=== PATIENT | female | born 1965 | race Caucasian/White ===

== ENCOUNTER 2017-08-31 05:40 | Outpatient (CLI) | payer BC ==
[~2017-08-31] VITALS: Ht 165.1 cm; Wt 108.9 kg
[2017-08-31] MEDS ORDERED: BUPR150T7 PO (10:58)
[2017-08-31] MEDS ORDERED: ESCI20TA PO (10:58)
[2017-08-31] MEDS ORDERED: DULA0.75 SQ (10:58)
[2017-08-31] MEDS ORDERED: OMEP20TA33 PO (10:58)
[2017-08-31] MEDS ORDERED: METF500T4 PO (10:58)
[2017-09-01] MEDS ORDERED: DOCU-143 PO (12:24)
[2017-09-01] MEDS ORDERED: OXYC-465 PO (12:24)
[2017-09-01] MEDS ORDERED: IBUP-1780 PO (12:24)
== END 2017-08-31 11:07 ==
LOC: PREOP 05:40
PROVIDERS: ATTEND Obstetrics & Gynecology
DX: Z01.818 Encounter for other preprocedural examination (principal); N95.0 Postmenopausal bleeding; N85.02 Endometrial intraepithelial neoplasia [EIN]

== ENCOUNTER 2017-09-01 10:49 | Day surgery (SDC) | payer BC ==
[~2017-09-01] VITALS: Ht 165.1 cm; Wt 108.9 kg
[2017-09-01] VITALS (9 sets, daily range): BP systolic 101–135; BP diastolic 54–86
[~2017-09-01 10:49] MED LIST: BUPR150T7 PO; DULA0.75 SQ; ESCI20TA PO; METF500T4 PO; OMEP20TA33 PO
--- OUTSIDE RECORDS SUMMARY | 2017-09-01 10:54 | XMS REPORT | Continuity of Care Document ---
Author Author [facility] Organization [facility] Address Unknown Phone Unavailable Allergies Active Description Code Type Severity Reaction Onset Reported/Identified Relationship to Patient Clinical Status Yes egg [id number] Drug Allergy Unknown HIVES 08/31/2017 Medications There is no data. Problems Date Dx Coded Attending Type Code Diagnosis Diagnosed By 08/28/2012 Ot 172.9 MALIG MELANOMA SKIN NOS 07/26/2014 Ot V76.12 07/26/2014 Ot V76.12 07/26/2014 Ot 172.9 07/26/2014 LIYA JARVIS, MARJORIE Boswell Ot V76.12 07/30/2014 LIYA JARVIS, MARJORIE Boswell Ot V76.12 07/31/2014 LIYA JARVIS, MARJORIE Boswell Ot V76.12 08/07/2014 Ot V76.12 08/07/2014 LIYA JARVIS, MARJORIE Boswell Ot V76.12 08/07/2014 LIYA JARVIS, MARJORIE Boswell Ot V76.12 08/07/2014 Ot V76.12 08/07/2014 Ot 172.9 08/07/2014 LIYA JARVIS, MARJORIE Boswell Ot V76.12 08/07/2014 LIYA JARVIS, MARJORIE Boswell Ot V76.12 01/01/2015 LIYA JARVIS, MARJORIE Boswell Ot 610.0 06/14/2015 Ot V76.12 06/14/2015 LIYA JARVIS, MARJORIE Boswell Ot V76.12 06/14/2015 LIYA JARVIS, MARJORIE Boswell Ot V76.12 06/14/2015 LIYA JARVIS, MARJORIE Boswell Ot 610.0 09/09/2015 Ot V76.12 09/09/2015 Ot 172.9 09/09/2015 LIYA JARVIS, MARJORIE Boswell Ot V76.12 09/09/2015 LIYA JARVIS, MARJORIE Boswell Ot V76.12 09/09/2015 MARJORIE NICKERSON MD Ot 610.0 09/11/2015 MARJORIE NICKERSON MD Ot Z12.31 09/23/2015 MARJORIE NICKERSON MD, Ot Z12.31 04/06/2016 Ot V76.12 OTH SCREEN MAMMO-MALIGN NEOPLASM OF GADIEL 04/06/2016 Ot 172.9 MALIG MELANOMA SKIN NOS 04/06/2016 MARJORIE NICKERSON MD Ot V76.12 OTH SCREEN MAMMO-MALIGN NEOPLASM OF GADIEL 04/06/2016 MARJORIE NICKERSON MD Ot V76.12 OTH SCREEN MAMMO-MALIGN NEOPLASM OF GADIEL 04/06/2016 MARJORIE NICKERSON MD Ot 610.0 SOLITARY CYST OF BREAST 04/06/2016 MARJORIE NICKERSON MD Ot Z12.31 ENCNTR SCREEN MAMMOGRAM FOR MALIGNANT NE 04/16/2016 MARJORIE NICKERSON MD Ot R92.8 OTH ABN AND INCONCLUSIVE FINDINGS ON DX 08/31/2017 Ot 172.9 MALIG MELANOMA SKIN NOS Procedures There is no data. Results There is no data. Encounters ACCT No. Visit Date/Time Discharge Status Pt. Type Provider Facility Loc./Unit Complaint [id number] 08/31/2017 05:40:00 08/31/2017 11:07:00 DIS Outpatient MARJORIE NICKERSON MD [facility] PREOP POST MENOPAUSAL BLEEDING [id number] 07/29/2017 14:09:00 07/29/2017 23:59:59 CLS Preadmit MARJORIE NICKERSON MD [facility] RAD ROUTINE SCREENING [id number] 04/06/2016 07:33:00 04/06/2016 23:59:59 CLS Outpatient MARJORIE NICKERSON MD [facility] RAD F/U MAMMO 6 MO [id number] 09/09/2015 07:32:00 09/09/2015 23:59:59 CLS Outpatient MARJORIE NICKERSON MD [facility] RAD SCREENING [id number] 08/07/2014 11:56:00 08/07/2014 23:59:59 CLS Outpatient MARJORIE NICKERSON MD [facility] RAD ABNORMAL MAMMO [id number] 07/27/2014 07:22:00 07/27/2014 23:59:59 CLS Outpatient MARJORIE NICKERSON MD [facility] RAD SCREENING [id number] 06/09/2013 10:47:00 06/09/2013 23:59:59 CLS Outpatient MARJORIE NICKERSON MD [facility] RAD SCREENING [id number] 09/01/2017 13:00:00 PEN Preadmit MARJORIE NICKERSON MD [facility] SDC POST MENOPAUSAL BLEEDING [id number] 08/29/2012 00:00:00 Document Registration [id number] 05/30/2012 13:48:00 Document Registration [id number] 05/02/2012 09:25:00 Document Registration [id number] 05/06/2011 07:44:00 Document Registration
[2017-09-01 11:25] LABS: BASOPHILS % (AUTO) 0 % (0-10); EOSINOPHILS # (AUTO) 0.2 10^3/uL (0.0-0.3); EOSINOPHILS % (AUTO) 2 % (0-10); HEMATOCRIT 41 % (35-52); HEMOGLOBIN 14.3 G/DL (11.5-16.0); LYMPHOCYTES # (AUTO) 2.4 X 10^3 (1.0-4.0); LYMPHOCYTES % (AUTO) 31 % (12-44); MEAN CORPUSCULAR HEMOGLOBIN 31 PG (25-34); MEAN CORPUSCULAR HGB CONC 35 G/DL (32-36); MEAN CORPUSCULAR VOLUME 89 FL (80-99); MEAN PLATELET VOLUME 10.6 FL (7.4-10.4); MONOCYTES # (AUTO) 0.5 X 10^3 (0.0-1.0); MONOCYTES % (AUTO) 7 % (0-12); NEUTROPHILS # (AUTO) 4.7 X 10^3 (1.8-7.8); NEUTROPHILS % (AUTO) 60 % (42-75); PLATELET COUNT 229 10^3/uL (130-400); RED BLOOD COUNT 4.59 10^6/uL (4.35-5.85); RED CELL DISTRIBUTION WIDTH 12.1 % (10.0-14.5); WHITE BLOOD COUNT 7.8 10^3/uL (4.3-11.0)
[2017-09-01] MEDS ORDERED: ceFAZolin 1,000 MG (ANCEF) VIAL ONE (11:32)
[2017-09-01] MEDS ORDERED: NS (IVPB) 100 ML ONE (11:32)
[2017-09-01] MEDS ORDERED: ESTROGENS CONJ IV 25 MG/5 ML (PREMARIN) VIAL IV ONE (11:45)
[2017-09-01] MEDS ORDERED: ceFAZolin 1 GM/NS 100 ML IVPB IV ONE ×2 (11:45)
[2017-09-01] MEDS: LACTATED RINGERS 1,000 ML IV PRN ×2 (11:54→13:00)
[2017-09-01] MEDS ORDERED: BUP/EPI 0.5% 1:200,000 (SENSORCAINE) 30 ML VIAL ONE (11:55)
[2017-09-01] MEDS ORDERED: ceFAZolin INJECTION 1,000 MG in NS (IVPB) 100 ML IV ONE (12:00)
[2017-09-01] MEDS ORDERED: ESTROGENS CONJ IV 25 MG/5 ML (PREMARIN) VIAL IM ONE (12:00)
[2017-09-01] MEDS ORDERED: fentaNYL INJECTION 100 MCG/2 ML AMP ONE ×3 (12:18→13:55)
[2017-09-01] MEDS ORDERED: ONDANSETRON 4 MG/2 ML (SDV) Z0FRAN ONE (12:18)
[2017-09-01] MEDS ORDERED: ROCURONIUM 10 MG/ML 5 ML SYRINGE IV ONE (12:18)
[2017-09-01] MEDS ORDERED: LIDOCAINE PF 2% 5 ML (XYLOCAINE) VIAL ONE (12:18)
[2017-09-01] MEDS ORDERED: SEVOFLURANE (ULTANE) 15 ML INHAL SOLN ONE (12:18)
[2017-09-01] MEDS ORDERED: proPOfol 200 MG/20 ML (DIPRIVAN) VIAL IV ONE (12:18)
[2017-09-01] MEDS ORDERED: MIDAZOLAM 2 MG/2 ML (VERSED) VIAL ONE (12:18)
--- NOTE | 2017-09-01 12:20 | Progress Note-Post Operative ---
Post-Operative Progess Note Surgeon (s)/Marketing Operations Assistant (s) Surgeon MARJORIE NICKERSON MD Marketing Operations Assistant: Martha Velazquez Pre-Operative Diagnosis Endometrial hyperplasia with atypia, DUB, PMB Post-Operative Diagnosis Same with pathology pending Procedure & Operative Findings Date of Procedure 09/01/17 Procedure Performed/Findings TL H with BSO Anesthesia Type GETA Estimated Blood Loss Estimated blood loss (mL): Minimal Specimens/Packing Specimens Removed Uterus tubes and ovaries Packing: None MARJORIE NICKERSON MD Sep 01, 2017 12:20
--- NOTE | 2017-09-01 12:20 | Progress Note-Pre Operative ---
Pre-Operative Progress Note H&P Reviewed The H&P was reviewed, patient examined and no changes noted. Date Seen by Provider: Sep 01, 2017 Time Seen by Provider: 12:19 Date H&P Reviewed: Sep 01, 2017 Time H&P Reviewed: 12:20 Pre-Operative Diagnosis: SUSAN/uterine mass/menorrhagia MARJORIE NICKERSON MD Sep 01, 2017 12:20 pm
[2017-09-01] MEDS ORDERED: IBUP-1780 PO (12:24)
[2017-09-01] MEDS ORDERED: DOCU-143 PO (12:24)
[2017-09-01] MEDS ORDERED: OXYC-465 PO (12:24)
--- NOTE | 2017-09-01 12:26 | Discharge Instructions ---
Discharge Instructions Discharge Medications New, Converted or Re-Newed RX: RX on Chart Patient Instructions Patient Instructions: As directed Return to The Hospital For: As directed Activity & Diet Discharge Diet: No Restrictions Activity as Tolerated: No Orders-Post D/C & Referrals Follow Up Appt: Return to clinic on Wednesday at 930 a.m. for staple removal Call to make follow up appt. for patient in 4 weeks. Activity: Rest for 24 hours, than as tolerated. Wound Care: May remove Band-Aid tomorrow. Replace as desired. Keep incisions clean and dry. Wash daily with soap and water. Please call in RX to patient pharmacy. Diet: As tolerated-Clear Liquids only if nauseated. may shower or tub bathe as desired. No driving for 24 hours, no alcoholic beverages for 24 hours, and nothing per vagina (no tampons, douching, or intercourse) for 8 weeks. Patient to return to the clinic as soon as possible for: Temperature greater than 101F, Severe Pain, Foul discharge from incision or vagina, Excessive Bleeding (more than a period). MARJORIE NICKERSON MD Sep 01, 2017 12:26 pm
[2017-09-01] MEDS ORDERED: ESTROGENS CONJ IV 25 MG/5 ML (PREMARIN) VIAL IVP ONE (12:30)
[2017-09-01] MEDS ORDERED: WATER (STERILE) FOR INJ 10 ML BTL INJ ONE (12:30)
[2017-09-01] MEDS ORDERED: PROMETHAZINE INJ 25 MG/ML (PHENERGAN) AMP IM PRN (12:30)
[2017-09-01] MEDS ORDERED: MEPERIDINE (DEMEROL) INJ 100 MG/ML IM PRN (12:30)
[2017-09-01] MEDS ORDERED: ONDANSETRON 4 MG/2 ML (SDV) Z0FRAN IVP PRN ×2 (12:30→14:45)
[2017-09-01] MEDS ORDERED: NEOSTIGMINE 1 MG/ML 5 ML SYRINGE ONE (13:56)
[2017-09-01] MEDS ORDERED: GLYCOPYRROLATE 0.2 MG/ML (ROBINUL) 2 ML VIAL ONE (13:56)
[2017-09-01] MEDS: KETOROLAC 30 MG/ML VIAL IVP SCH ×2 (14:00→20:10)
[2017-09-01] MEDS ORDERED: morphine INJ 10 MG/ML 1ML (SYR OR VIAL) ONE (14:04)
[2017-09-01] MEDS: morphine INJ 10 MG/ML 1ML (SYR OR VIAL) IVP PRN ×2 (14:40→14:45)
[2017-09-01] MEDS ORDERED: HYDROmorphone (DILAUDID) 2 MG/ML VIAL IVP PRN (14:45)
[2017-09-01] MEDS ORDERED: MEPERIDINE (DEMEROL) INJ 50 MG/ML IVP PRN (14:45)
[2017-09-01] MEDS ORDERED: PATIENT MAY USE OWN MEDS, ALL MC SCH (15:45)
[2017-09-01] MEDS: D5 LR IV SOLUTION 1,000 ML IV SCH ×2 (16:13→21:03)
--- NOTE | 2017-09-01 17:30 | Anesthesia-General Post-Op ---
General Patient Condition Mental Status/LOC: Same as Preop Cardiovascular: Satisfactory Nausea/Vomiting: Absent Respiratory: Satisfactory Pain: Controlled Complications: Absent Post Op Complications Complications None Follow Up Care/Instructions Patient Instructions None needed. Anesthesia/Patient Condition Patient Condition Patient is doing well, no complaints, stable vital signs, no apparent adverse anesthesia problems. No complications reported per nursing. TASIA CANO CRNA Sep 01, 2017 17:30
[2017-09-01] MEDS: oxyCODONE/APAP 10/325MG (PERCOCET 10) TABLET PO PRN ×2 (17:54→23:58)
[2017-09-01] MEDS: metFORMIN 500 MG (GLUCOPHAGE) TAB PO SCH ×2 (20:16→20:18)
--- NOTE | 2017-09-02 01:07 | OPERATIVE REPORT ---
DATE OF SERVICE: 09/01/2017 PREOPERATIVE DIAGNOSES: Postmenopausal bleeding with atypical endometrial hyperplasia and also with dysfunctional uterine bleeding and menorrhagia. POSTOPERATIVE DIAGNOSES: Postmenopausal bleeding with atypical endometrial hyperplasia and also with dysfunctional uterine bleeding and menorrhagia with pathology pending. OPERATIVE PROCEDURE: Total laparoscopic hysterectomy with bilateral salpingo-oophorectomy. OPERATIVE DESCRIPTION: With the patient in supine position under satisfactory general anesthesia, she was repositioned in dorsal lithotomy position in the [facility] and prepped and draped in the usual fashion for abdominal and vaginal surgery. Marinelli catheter was placed in the urinary bladder and left to dependent drainage. A weighted speculum placed in the posterior fornix of vagina. The cervix was exposed and grasped anteriorly with single tooth tenaculum. Uterus was sounded to 11 cm with uterine sound. The cervix was then serially dilated with Dariusz dilators and a Caryl II manipulator was placed using a 30 mm colpotomy ring and an 8 cm uterine probe. Sutures of #1 Vicryl were placed at 3 and 9 o'clock positions of the cervix to affix the specimen to the manipulator. The patient was brought in low dorsal lithotomy position. A 12 mm incision was made just superior to the umbilicus, 8 mm incisions were made 9 cm lateral to the umbilicus. All incision sites were infiltrated with 0.25% Marcaine with epinephrine prior to incision. The Veress needle was placed through the midline incision and correct placement confirmed with a water drop test. The abdomen was insufflated with 2.4 liters of carbon dioxide. The Veress needle was removed and a 12 mm Optiview laparoscopic port placed. The laparoscope was introduced and 8 mm ports were placed through the lateral incision. The patient was placed in Trendelenburg and then the equipment manipulator was positioned and affixed. The operative instruments were placed and I retired to the console. Using the vessel sealer on the right and a bipolar fenestrated grasper on the left, the pelvis was first examined and both ovaries were somewhat atretic appearing. The fallopian tubes were normal, but somewhat atretic as well. The uterus was quite mottled in appearance. There were some adhesions of the sigmoid closely to the left IP ligament and left round ligament, and these were taken free to allow the bowel to spill up out of the pelvis. An attempt was made to identify the appendix; however, it was too far cephalad and covered with small bowel. I could not see the appendix. Laparoscope was brought back to the pelvis. The procedure was initiated by grasping the right tube and ovary identifying the ureter medial to that to the IP ligament and clamping, cauterizing, dividing the IP ligament, the mesovarium, the round ligament, the broad ligament, and down onto the cardinal ligament on the right, allowing for removal of the right tube and ovary eventually with the uterus. The same procedure was performed on the left and then the vessel sealer was replaced with a monopolar shear. The anterior lower uterine segment peritoneum was divided. The bladder was carefully dissected down off the lower uterine segment, then colpotomy incision was made at 12 o'clock position and continued circumferentially clockwise and counterclockwise until the entire colpotomy ring was exposed. All blood vessels encountered along the way were cauterized and sealed. The uterus with tubes and ovaries still attached was extracted through the vagina. The vaginal cuff was then closed using a roge cut needle around the right and a cobra grasper on the left for manipulation. The V-Loc barbed suture was started on the right including the terminus of the uterine vessels, pedicles, and the closure. The vaginal cuff was closed to the midline with that suture in a running fashion. The second suture was then used to start on the left and continued to the midportion of the vaginal cuff, closing the vaginal cuff completely. Hemostasis was complete. There was minimal blood loss at this point. Both ureters were seemed to peristalse before the procedure was initiated during the procedure and now after the procedure was complete. Both the ureters were intact. There was no evidence of dilation or restriction. The procedure was terminated at this point. The operative instruments were removed under direct vision as were the ports. There was no bleeding from the port sites. The abdomen was evacuated and insufflating gas in the process of removing the ports. The skin incisions were closed now with alexia. The fascia at the supraumbilical incision was closed with [id number]-[id number] suture of 2-0 Vicryl. A speculum was replaced in the vagina. Vaginal cuff was examined and found completely hemostatic and completely reapproximated. Sponge and needle counts were correct at the end of the procedure. Estimated blood loss for procedure was minimal. The patient tolerated the procedure well, was uneventfully awakened from her general anesthesia and transferred to the recovery room in stable condition. Job ID: [id number] DocumentID: [id number] Dictated Date: 09/01/2017 14:03:05 Financial Sales Representative Date: 09/01/2017 23:29:13 Dictated By: MARJORIE NICKERSON MD
[2017-09-02] MEDS: KETOROLAC 30 MG/ML VIAL IVP SCH (02:01)
[2017-09-02 02:30] VITALS: BP 100/54
[2017-09-02] MEDS ORDERED: CALCIUM CARBONATE 500 MG (TUMS) TAB.CHEW ONE (06:42)
[2017-09-02] MEDS ORDERED: CALCIUM CARBONATE 500 MG (TUMS) TAB.CHEW PO ONE (07:00)
--- NOTE | 2017-09-02 08:03 | Progress Note-Standard ---
Standard Progress Note Progress Notes/Assess & Plan Date Seen by Provider: Sep 02, 2017 Time Seen by Provider: 08:01 Progress/Assessment & Plan This patient is without complaint. She is ambulating, voiding, tolerating by mouth well, has good pain control. Patient denies chest pain, denies shortness of breath, denies nausea vomiting, and denies headache. Vital Signs Date Time Temp Pulse Resp B/P (MAP) Pulse Ox O2 Delivery O2 Flow Rate FiO2 09/02/17 04:00 18 Room Air 09/02/17 02:30 98.2 104 18 100/54 (69) 97 Room Air 09/01/17 23:00 98.3 86 18 101/59 (73) 91 Room Air 09/01/17 20:30 18 99 Room Air 09/01/17 18:30 81 18 103/54 (70) 98 Nasal Cannula 1.00 09/01/17 18:00 88 18 119/67 (84) 99 Nasal Cannula 1.00 09/01/17 17:00 98.4 69 18 110/63 (79) 98 Nasal Cannula 1.50 09/01/17 16:30 74 18 110/63 (79) 95 Nasal Cannula 1.50 09/01/17 16:00 71 18 115/62 (79) 100 Nasal Cannula 1.50 09/01/17 16:00 Nasal Cannula 1.50 09/01/17 15:30 71 18 114/64 (81) 100 Nasal Cannula 2.00 09/01/17 15:20 98.2 89 16 125/65 (85) 100 Room Air 09/01/17 11:15 99.0 74 16 135/86 (102) 96 Room Air I & O 09/02/17 06:59 Intake Total 3780 ml Output Total 1135 ml Balance 2645 ml Vital signs are stable. Patient is afebrile. The abdomen is benign. Extremities show no clubbing or cyanosis. There is no Homans sign. Assessment and plan postoperative day number 1 doing well. Plans for discharge home with follow-up in clinic Final Diagnosis Endometrial hyperplasia with atypia MARJORIE NICKERSON MD Sep 02, 2017 8:03 am
[2017-09-02] MEDS ORDERED: IBUPROFEN 800 MG (MOTRIN) TAB PO ONE (08:04)
[2017-09-02] MEDS ORDERED: IBUP-1780 PO (08:05)
[2017-09-02] MEDS ORDERED: DOCU100C37 PO (08:05)
[2017-09-02] MEDS ORDERED: OXYC-465 PO (08:05)
[2017-09-02] MEDS ORDERED: ESTR1TAB24 PO (08:05)
[2017-09-02 08:32] VITALS: BP 130/80
[2017-09-02] MEDS ORDERED: DOCUSATE SODIUM 100 MG (COLACE) CAP PO SCH (09:00)
[2017-09-02] MEDS ORDERED: buPROPion XL 150 MG (WELLBUTRIN XL) NON-FORM PO SCH (09:00)
[2017-09-02] MEDS ORDERED: ESTRADIOL 1 MG TAB (ESTRACE) PO SCH (09:00)
[2017-09-02] MEDS ORDERED: ESCITALOPRAM 20 MG (LEXAPRO) TABLET NON-FORMULARY PO SCH (09:00)
[2017-09-02] MEDS ORDERED: IBUPROFEN 800 MG (MOTRIN) TAB PO SCH (18:00)
== END 2017-09-02 11:50 | disposition home or self-care (01) ==
LOC: SDC 10:49 → WS 15:12 → SDC 09-02 11:50
PROVIDERS: ATTEND Obstetrics & Gynecology
DX: N83.8 Other noninflammatory disorders of ovary, fallopian tube and broad ligament (principal); N72 Inflammatory disease of cervix uteri; N95.0 Postmenopausal bleeding; Z79.899 Other long term (current) drug therapy
CPT/HCPCS: 36415; 82962; 84703; 85025; 86850; 86900; 86901; 87081; 94664

== ENCOUNTER 2017-12-04 10:23 | Emergency (ER) | payer OTHER, BC ==
[~2017-12-04] VITALS: Ht 165.1 cm; Wt 112.5 kg
[~2017-12-04 10:23] MED LIST changes: +DOCU-143 PO; +DOCU100C37 PO; +ESTR1TAB24 PO; +IBUP-1780 PO; -METF500T4 PO; +METF500T5 PO; +OXYC-465 PO
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
[2017-12-04] MEDS ORDERED: METH750T3 PO (11:34)
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
[2017-12-04 12:00] VITALS: BP 146/73
== END 2017-12-04 12:00 | disposition home or self-care (01) ==
LOC: EDUNIT# 10:23 → ER 10:26
DX: S16.1XXA Strain of muscle, fascia and tendon at neck level, initial encounter (principal); F32.9 Major depressive disorder, single episode, unspecified; Z85.820 Personal history of malignant melanoma of skin; Z98.51 Tubal ligation status; Z79.84 Long term (current) use of oral hypoglycemic drugs; V43.52XA Car driver injured in collision with other type car in traffic accident, initial encounter; Y92.411 Interstate highway as the place of occurrence of the external cause
CPT/HCPCS: 72125

== ENCOUNTER 2018-10-22 15:36 | Emergency (ER) | payer BC, OTHER ==
[~2018-10-22] VITALS: Ht 165.1 cm; Wt 111.1 kg
[~2018-10-22 15:36] MED LIST changes: +METF-397 PO; -METF500T5 PO; +METH750T3 PO
--- NOTE | 2018-10-22 16:03 | ED General ---
General Chief Complaint: Trauma-Non Activation Stated Complaint: FALL,RIB PAIN Nursing Triage Note: PT AMB TO RM 5 WITH COMPLAINT OF FALL. PT STATES SHE FELL IN BATHTUB 1 HR AGO. PT STATES SHE HIT LEFT SIDE RIBS ON TUB. Nursing Sepsis Screen: No Definite Risk History of Present Illness Date Seen by Provider: Oct 22, 2018 Time Seen by Provider: 15:45 Initial Comments 53-year-old female presents for left rib pain. She states that she was getting out of her bathtub when she fell landing on the edge with her left ribs. She denies any other injuries or loss of consciousness. She is taking no pain medication prior to arrival. She reports mild discomfort with deep inspiration otherwise no shortness of air or dyspnea. Timing/Duration: 1-3 Hours Severity: Mild Associated Systoms: Denies Symptoms; No Shortness of Air Allergies and Home Medications Allergies Coded Allergies: egg (Verified Allergy, Unknown, HIVES, 08/31/17) Home Medications Bupropion HCl 150 Mg Tab.er.24h, 150 MG PO DAILY, (Reported) Docusate Sodium 100 Mg Capsule, 100 MG PO BID Prescribed by: MARJORIE NELSON on 09/01/17 1224 Docusate Sodium 100 Mg Capsule, 100 MG PO BID Prescribed by: MARJORIE NELSON on 09/02/17 08 Dulaglutide 0.75 Mg/0.5 Ml Pen.injctr, 0.75 MG SQ WEEK, (Reported) LAST DOSE 08/29/17 Escitalopram Oxalate 20 Mg Tablet, 20 MG PO HS, (Reported) Estradiol 1 Mg Tablet, 1 MG PO DAILY Prescribed by: MARJORIE NELSON on 09/02/17 0805 Ibuprofen 800 Mg Tablet, 800 MG PO Q6H PRN for PAIN Prescribed by: MARJORIE NELSON on 09/01/17 1224 Ibuprofen 800 Mg Tablet, 800 MG PO Q6HR Prescribed by: MARJORIE NELSON on 09/02/17 0805 Metformin HCl 500 Mg Tablet, 1,000 MG PO HS, (Reported) PRESCRIBED 500MG BID PATIENT TAKES 2(500MG) TABS AT HS Methocarbamol 750 Mg Tablet, 750 MG PO Q6H PRN for MUSCLE SPASMS Prescribed by: SUSIE PERDOMO on 12/04/17 1134 Omeprazole Magnesium 20 Mg Tablet.dr, 20 MG PO DAILY PRN for HEARTBURN, ( Reported) Oxycodone HCl/Acetaminophen 1 Each Tablet, 1-2 TAB PO Q4H PRN for PAIN Prescribed by: MARJORIE NELSON on 09/01/17 1224 Oxycodone HCl/Acetaminophen 1 Each Tablet, 1-2 TAB PO Q4HR PRN for PAIN- MODERATE TO SEVERE Prescribed by: MARJORIE NELSON on 09/02/17 0805 Patient Home Medication List Home Medication List Reviewed: Yes Review of Systems Review of Systems Constitutional: no symptoms reported, see HPI Respiratory: see HPI, other (pain left ribs) All Other Systems Reviewed Negative Unless Noted: Yes Past Mqtrpvj-Ukemax-Kjmygl Hx Past Med/Social Hx: Reviewed Nursing Past Med/Soc Hx Patient Social History Alcohol Use: Occasionally Uses Recreational Drug Use: No Smoking Status: Never a Smoker Recent Foreign Travel: No Contact w/Someone Who Travel: No Recent Infectious Disease Expo: No Recent Hopitalizations: No Immunizations Up To Date Date of Pneumonia Vaccine: Dec 02, 2009 Date of Influenza Vaccine: Mar 27, 2017 Seasonal Allergies Seasonal Allergies: No Past Medical History Surgeries: Yes (WISDOM TEETH, D&C, CYST REMOVED FROM KNEE, SKIN BX) Tubal Ligation Respiratory: No Cardiac: Yes (BENIGN MURMUR) Heart Murmur Neurological: Yes (POSSIBLE MILD TIA) Reproductive Disorders: Yes (PMB) Genitourinary: No Gastrointestinal: No Musculoskeletal: No Endocrine: Yes Cancer: Yes Melanoma What Type of Treatment Did You: Surgical Intervention Psychosocial: Yes Depression Integumentary: No Blood Disorders: No Physical Exam Vital Signs Vital Signs - First Documented 10/22/18 15:37 Temp 98.4 Pulse 77 Resp 16 B/P (MAP) 146/82 (103) Pulse Ox 95 O2 Delivery Room Air Capillary Refill : Less Than 3 Seconds Height, Weight, BMI Height: 5'5.00" Weight: 245lbs. 0.0oz. [id number]; 39.9 BMI Method:Stated General Appearance: No Apparent Distress, WD/WN Neck: Full Range of Motion, Normal Inspection, Non Tender, Supple Respiratory: Lungs Clear, Normal Breath Sounds; No Decreased Breath Sounds, No Respiratory Distress; Other (tenderness along the lateral left ribs, no crepitus ) Cardiovascular: Regular Rate, Rhythm, No Edema, No Murmur, Normal Peripheral Pulses Gastrointestinal: Normal Bowel Sounds, Non Tender, Soft Neurologic/Psychiatric: Alert, Oriented x3, No Motor/Sensory Deficits, Normal Mood/Affect Skin: Normal Color, Warm/Dry Progress/Results/Core Measures Suspected Sepsis Recent Fever Within 48 Hours: No Infection Criteria Present: None New/Unexplained Altered Menta: No Sepsis Screen: No Definite Risk SIRS Temperature:98.4 Pulse: 77 Respiratory Rate: 16 Blood Pressure 146 /82 Mean: 103 Results/Orders My Orders Orders - DIYA NUNEZ Ribs, Left 2-3 Views (10/22/18 15:54) Vital Signs/I&O 10/22/18 10/22/18 15:37 16:30 Temp 98.4 Pulse 77 71 Resp 16 18 B/P (MAP) 146/82 (103) 117/61 (79) Pulse Ox 95 94 O2 Delivery Room Air Room Air Capillary Refill : Less Than 3 Seconds Blood Pressure Mean: 103 Diagnostic Imaging Diagonstic Imaging: Xray Plain Films/CT/US/NM/MRI: other (left ribs) Comments NAME: GIRMA MURRY [facility] REC#: [id number] PT STATUS: REG ER : 1965 PHYSICIAN: DIYA NUNEZ ADMIT DATE: 10/22/18/ER Draft Date of Exam:10/22/18 RIBS, LEFT 2-3 VIEWS INDICATION: Pain after fall. EXAMINATION: Three views of the left ribs were obtained. FINDINGS: The left lung is clear. There is no pleural effusion or pneumothorax. There are no displaced rib fractures. IMPRESSION: No displaced rib fractures. Dictated on workstation # [id number] Dict: 10/22/18 1609 Trans: 10/22/18 1611 [facility] [id number] Interpreted by: PORFIRIO MCQUEEN MD Electronically signed by: Reviewed: Reviewed by Me Departure Impression Primary Impression: Contusion of rib on left side Qualified Codes: S20.212A - Contusion of left front wall of thorax, initial encounter Disposition: HOME, SELF-CARE Condition: Improved Departure-Patient Inst. Decision time for Depature: 16:20 Referrals: EDUARDO MOSCOSO MD (PCP/Family) Primary Care Physician Patient Instructions: Bruised Rib (DC) Add. Discharge Instructions: Alternate heat and ice to left ribs 20 minutes every 2 hours. Splint the area and take deep breaths and cough, 10 times every hour. You may use ibuprofen 600 mg alternating with Tylenol 650 mg every 4 hours for pain or inflammation. Follow-up with your primary care provider if symptoms are not improving or worsen. Return to emergency department for difficulty breathing or new problems. All discharge instructions reviewed with patient and/or family. Voiced understanding. Copy Copies To 1: EDUARDO MOSCOSO MD, AMY ARNP Oct 22, 2018 16:03
--- NOTE | 2018-10-22 16:12 | Diagnostic Imaging Report ---
INDICATION: Pain after fall. EXAMINATION: Three views of the left ribs were obtained. FINDINGS: The left lung is clear. There is no pleural effusion or pneumothorax. There are no displaced rib fractures. IMPRESSION: No displaced rib fractures. Dictated by: Dictated on workstation # [id number]
[2018-10-22 16:30] VITALS: BP 117/61
== END 2018-10-22 16:30 | disposition home or self-care (01) ==
LOC: EDUNIT# 15:36 → ER 15:37
DX: S20.212A Contusion of left front wall of thorax, initial encounter (principal); F32.9 Major depressive disorder, single episode, unspecified; Z79.84 Long term (current) use of oral hypoglycemic drugs; Z98.51 Tubal ligation status; Z98.890 Other specified postprocedural states; Z85.820 Personal history of malignant melanoma of skin; W01.198A Fall on same level from slipping, tripping and stumbling with subsequent striking against other object, initial encounter
CPT/HCPCS: 71100

== ENCOUNTER 2019-04-07 22:49 | Emergency (ER) | payer BC ==
[~2019-04-07] VITALS: Ht 165 cm; Wt 114.7 kg
[2019-04-07] MEDS ORDERED: NS IV 1000 ML 1,000 ML IV SCH (23:01)
--- NOTE | 2019-04-07 23:17 | ED General ---
General Stated Complaint: HIGH BLOOD SUGAR - 550 Source of Information: Patient History of Present Illness Date Seen by Provider: Apr 07, 2019 Time Seen by Provider: 23:00 Initial Comments PT ARRIVES VIA POV FROM HOME C/O ELEVATED BLOOD SUGAR STATES LAST PM SHE WAS HAVING BLOOD DRAWN FOR INSURANCE PHYSICAL, AND STARTED FEELING HOT AND NAUSEATED CHECKED HER BLOOD SUGAR AND IT WAS 238 TODAY SHE DROVE HOME FROM [place], AND WAS VERY TIRED CHECKED HER BLOOD SUGAR AFTER SHE ATE DINNER ( [employer], [employer]--ATE AT 1930 ) AND WAS 484 AT 2030 AN HOUR LATER, SHE RECHECKED IT AND IT WAS 550, SO TOOK HER MEDICATIONS AND STARTED DRINKING WATER. BLOOD SUGAR 20 MINUTES PRIOR TO ARRIVAL WAS 520, SO CAME HERE WAS SLIGHTLY SHORT OF BREATH AND CHEST FELT A LITTLE TIGHT, BUT NOT NOW. NO NAUSEA TODAY NO URINARY FREQUENCY OR THIRST NO FEVER OR RECENT ILLNESS STATES SHE HAS BEEN UNDER ALOT OF STRESS LATELY. PT WAS DX WITH DIABETES IN 2009, WAS STARTED ON TRULICITY AND VICTOZA AT TIME OF DX. IN JUNE 2018 SHE WAS ALSO STARTED ON TRESIBA STATES HER HGB A1C WAS 11 IN JUNE 2018. WAS DOWN TO 8 IN JANUARY 2019. TRESIBA DOSE WAS INCREASED FROM 12 UNITS TO 14 UNITS IN JANUARY. ON REVIEW OF MED RECONCILIATION, PT IS ON METFORMIN, TRULICITY, TRESIBA. PCP: DR. MOSCOSO Allergies and Home Medications Allergies Coded Allergies: egg (Verified Allergy, Unknown, HIVES, 08/31/17) Home Medications Bupropion HCl 150 Mg Tab.er.24h, 150 MG PO DAILY, (Reported) Docusate Sodium 100 Mg Capsule, 100 MG PO BID Prescribed by: MARJORIE NELSON on 09/01/17 1224 Docusate Sodium 100 Mg Capsule, 100 MG PO BID Prescribed by: MARJORIE NELSON on 09/02/17 08 Dulaglutide 0.75 Mg/0.5 Ml Pen.injctr, 0.75 MG SQ WEEK, (Reported) LAST DOSE 08/29/17 Escitalopram Oxalate 20 Mg Tablet, 20 MG PO HS, (Reported) Estradiol 1 Mg Tablet, 1 MG PO DAILY Prescribed by: MARJORIE NELSON on 09/02/17 08 Ibuprofen 800 Mg Tablet, 800 MG PO Q6H PRN for PAIN Prescribed by: MARJORIE NELSON on 09/01/17 1224 Ibuprofen 800 Mg Tablet, 800 MG PO Q6HR Prescribed by: MARJORIE NELSON on 09/02/17 0805 Metformin HCl 500 Mg Tablet, 1,000 MG PO HS, (Reported) PRESCRIBED 500MG BID PATIENT TAKES 2(500MG) TABS AT HS Methocarbamol 750 Mg Tablet, 750 MG PO Q6H PRN for MUSCLE SPASMS Prescribed by: SUSIE PERDOMO on 12/04/17 1134 Nitrofurantoin Monohyd/M-Cryst 100 Mg Capsule, 100 MG PO BID Prescribed by: GIRMA WIGGINS on 04/08/19 0116 Omeprazole Magnesium 20 Mg Tablet.dr, 20 MG PO DAILY PRN for HEARTBURN, (Reported) Oxycodone HCl/Acetaminophen 1 Each Tablet, 1-2 TAB PO Q4H PRN for PAIN Prescribed by: MARJORIE NELSON on 09/01/17 1224 Oxycodone HCl/Acetaminophen 1 Each Tablet, 1-2 TAB PO Q4HR PRN for PAIN-MODERATE TO SEVERE Prescribed by: MARJORIE NELSON on 09/02/17 0805 Patient Home Medication List Home Medication List Reviewed: Yes Review of Systems Review of Systems Constitutional: see HPI, malaise EENTM: no symptoms reported Respiratory: see HPI Cardiovascular: see HPI Gastrointestinal: see HPI Genitourinary: no symptoms reported Musculoskeletal: no symptoms reported Skin: no symptoms reported Psychiatric/Neurological: No Symptoms Reported Hematologic/Lymphatic: No Symptoms Reported Immunological/Allergic: no symptoms reported Past Gdmcums-Gtsalv-Ovaolq Hx Patient Social History Recent Foreign Travel: No Contact w/Someone Who Travel: No Recent Hopitalizations: No Immunizations Up To Date Date of Pneumonia Vaccine: Dec 02, 2009 Date of Influenza Vaccine: Mar 27, 2017 Seasonal Allergies Seasonal Allergies: No Past Medical History Surgeries: Yes (WISDOM TEETH, D&C, CYST REMOVED FROM KNEE, SKIN BX; MELANOMA REMOVED AND SENTINEL NODE BIOPSY 2011; HYST/BSO 08/2017) Tubal Ligation Respiratory: No Cardiac: Yes (BENIGN MURMUR) Heart Murmur Neurological: Yes (POSSIBLE MILD TIA) 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 0.0oz. 111.174493hi; 39.9 BMI Method:Stated General Appearance: No Apparent Distress, Obese HEENT: PERRL/EOMI Respiratory: Normal Breath Sounds, No Accessory Muscle Use, No Respiratory Distress Cardiovascular: Regular Rate, Rhythm, No Edema, No JVD, No Murmur, Normal Peripheral Pulses Gastrointestinal: Normal Bowel Sounds, No Organomegaly, No Pulsatile Mass, Non Tender, Soft Back: Normal Inspection, No CVA Tenderness Extremity: Normal Capillary Refill, Normal Inspection, Normal Range of Motion, Non Tender, No Calf Tenderness, No Pedal Edema Neurologic/Psychiatric: Alert, Oriented x3, No Motor/Sensory Deficits, Normal 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, 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 as Tested Skin: Normal Color, Warm/Dry Focused Exam Lactate Level 04/08/19 00:01: Lactic Acid Level 1.68 Lactic Acid Level Laboratory Tests Test 04/08/19 00:01 Lactic Acid Level 1.68 MMOL/L (0.50-2.00) Progress/Results/Core Measures Suspected Sepsis SIRS Temperature: Pulse: Respiratory Rate: Laboratory Tests 04/07/19 23:25: White Blood Count 7.8 Blood Pressure / Mean: 04/08/19 00:01: Lactic Acid Level 1.68 Laboratory Tests 04/07/19 23:25: Creatinine 1.26, INR Comment 0.9, Platelet Count 233, Total Bilirubin 0.4 Results/Orders Lab Results Laboratory Tests Test 04/07/19 23:05 04/07/19 23:09 04/07/19 23:25 04/08/19 00:01 Range/Units Glucometer 453 *H 70-110 MG/DL Urine Color YELLOW Urine Clarity CLEAR Urine pH 6 5-9 Urine Specific [place] 1.010 L 1.016-1.022 Urine Protein NEGATIVE NEGATIVE Urine Glucose (UA) 4+ H NEGATIVE Urine Ketones NEGATIVE NEGATIVE Urine Nitrite NEGATIVE NEGATIVE Urine Bilirubin NEGATIVE NEGATIVE Urine Urobilinogen NORMAL NORMAL MG/DL Urine Leukocyte Esterase 2+ H NEGATIVE Urine RBC (Auto) NEGATIVE NEGATIVE Urine RBC NONE /HPF Urine WBC 5-10 H /HPF Urine Crystals NONE /LPF Urine Bacteria FEW H /HPF Urine Casts NONE /LPF Urine Mucus NEGATIVE /LPF Urine Culture Indicated YES White Blood Count 7.8 4.3-11.0 10^3/uL Red Blood Count 4.46 4.35-5.85 10^6/uL Hemoglobin 13.4 11.5-16.0 G/DL Hematocrit 39 35-52 % Mean Corpuscular Volume 86 80-99 FL Mean Corpuscular Hemoglobin 30 25-34 PG Mean Corpuscular Hemoglobin Concent 35 32-36 G/DL Red Cell Distribution Width 12.2 10.0-14.5 % Platelet Count 233 130-400 10^3/uL Mean Platelet Volume 11.2 H 7.4-10.4 FL Neutrophils (%) (Auto) 58 42-75 % Lymphocytes (%) (Auto) 32 12-44 % Monocytes (%) (Auto) 7 0-12 % Eosinophils (%) (Auto) 3 0-10 % Basophils (%) (Auto) 0 0-10 % Neutrophils # (Auto) 4.5 1.8-7.8 X 10^3 Lymphocytes # (Auto) 2.5 1.0-4.0 X 10^3 Monocytes # (Auto) 0.6 0.0-1.0 X 10^3 Eosinophils # (Auto) 0.2 0.0-0.3 10^3/uL Basophils # (Auto) 0.0 0.0-0.1 10^3/uL Prothrombin Time 11.9 L 12.2-14.7 SEC INR Comment 0.9 0.8-1.4 Activated Partial Thromboplast Time 31 24-35 SEC Sodium Level 134 L 135-145 MMOL/L Potassium Level 4.3 3.6-5.0 MMOL/L Chloride Level 97 L 98-107 MMOL/L Carbon Dioxide Level 26 21-32 MMOL/L Anion Gap 11 5-14 MMOL/L Blood Urea Nitrogen 19 H 7-18 MG/DL Creatinine 1.26 0.60-1.30 MG/DL Estimat Glomerular Filtration Rate 44 BUN/Creatinine Ratio 15 Glucose Level 540 *H 70-105 MG/DL Calcium Level 9.5 8.5-10.1 MG/DL Corrected Calcium 9.5 8.5-10.1 MG/DL Magnesium Level 1.5 L 1.6-2.4 MG/DL Total Bilirubin 0.4 0.1-1.0 MG/DL Aspartate Amino Transf (AST/SGOT) 13 5-34 U/L Alanine Aminotransferase (ALT/SGPT) 21 0-55 U/L Alkaline Phosphatase 160 H 40-136 U/L Troponin I < 0.028 <0.028 NG/ML B-Type Natriuretic Peptide 14.7 <100.0 PG/ML Total Protein 6.9 6.4-8.2 GM/DL Albumin 4.0 3.2-4.5 GM/DL Amylase Level 51 25-125 U/L Lipase 29 8-78 U/L TSH [place] Testing 2.40 0.35-4.94 UIU/ML Lactic Acid Level 1.68 0.50-2.00 MMOL/L Test 04/08/19 01:05 Range/Units Glucometer 276 H 70-110 MG/DL My Orders Orders - GIRMA WIGGINS DO Accucheck Stat ONCE (04/07/19:) Ed Iv/Invasive Line Start (04/07/19:) Monitor-Rhythm Ecg Trace Only (04/07/19:) Amylase (04/07/19:) Cbc With Automated Diff (04/07/19) Comprehensive Metabolic Panel (04/07/19) Lactic Acid Analyzer (04/07/19:) Lipase (04/07/19:) Magnesium (04/07/19:) Protime With Inr (04/07/19) Partial Thromboplastin Time (04/07/19:) Thyroid Analyzer (04/07/19:) Ua Culture If Indicated (04/07/19:) Ed Iv/Invasive Line Start (04/07/19:) Ns Iv 1000 Ml (Sodium Chloride 0.9%) (04/07/19:) BNP (04/07/19:18) Troponin I (04/07/19:18) Ekg Tracing (04/07/19:) Urine Culture (04/07/19 23:09) Ceftriaxone For Iv Use (Rocephin For I (10/11/19 23:45) Ed Iv/Invasive Line Start (04/08/19 00:15) Ns Iv 1000 Ml (Sodium Chloride 0.9%) (04/08/19 00:15) Insulin (Regular) Human (Humulin R (Per (04/08/19 00:15) Magnesium Oxide Tablet (Mag Ox Tablet) (04/08/19 00:30) Accucheck Stat ONCE (04/08/19 00:51) Magnesium Oxide Tablet (Mag Ox Tablet) (04/08/19 00:19) Medications Given in ED Current Medications Medications Dose Ordered Sig/Alvin Route Start Time Stop Time Status Last Admin Dose Admin Ceftriaxone Sodium 1000 mg/ Sterile Water 10 ml @ 200 mls/hr ONCE ONCE IV 04/07/19 23:45 04/07/19 23:47 DC 04/07/19 23:49 200 MLS/HR Insulin Human Regular 30 unit ONCE ONCE IV 04/08/19 00:15 04/08/19 00:17 DC 04/08/19 00:24 30 UNIT Magnesium Oxide 2,000 mg ONCE ONCE PO 04/08/19 00:30 04/08/19 01:28 DC 04/08/19 00:25 2,000 MG Sodium Chloride 1,000 ml @ 0 mls/hr Q0M ONCE IV 04/08/19 00:15 04/08/19 00:17 DC 04/08/19 00:24 1,000 MLS/HR Vital Signs/I&O 04/07/19 04/07/19 04/08/19 22:55 22:55 01:22 Temp 36.3 36.3 36.3 Pulse 77 77 74 Resp 18 18 14 B/P (MAP) 135/98 (110) 135/98 110/81 (110) Pulse Ox 97 97 97 04/08/19 00:00 Intake Total 1010 ml Balance 1010 ml Capillary Refill : Progress Note : Progress Note 6665--C/O SLIGHT CHEST TIGHTNESS AND SLIGHT SHORTNESS OF BREATH--EKG DONE AND IS NORMAL . IMMEDIATELY RESOLVED BLOOD GLUCOSE 276 AFTER IV FLUIDS AND INSULIN PT FEELS COMFORTABLE GOING HOME NO OTHER SYMPTOMS FOR REMAINDER OF ER STAY ECG Initial ECG Impression Date: Apr 07, 2019 Initial ECG Impression Time: 23:27 Initial ECG Rate: 67 Initial ECG Rhythm: Normal Sinus Initial ECG Impression: Normal Departure Impression Primary Impression: Uncontrolled diabetes mellitus Additional Impressions: UTI (urinary tract infection) Hypomagnesemia Disposition: HOME, SELF-CARE Condition: Improved Departure-Patient Inst. Referrals: EDUARDO MOSCOSO MD (PCP/Family) Primary Care Physician Patient Instructions: Diabetes Type 2 (DC), Diabetes and Diet, Urinary Tract Infections in Adults, Low Magnesium Level (DC) Add. Discharge Instructions: TAKE YOUR DIABETIC MEDICATIONS PRESCRIBED CHECK YOUR BLOOD SUGAR 4 TIMES A DAY--BEFORE EACH MEAL AND AT BEDTIME AND KEEP DIARY INCREASE YOUR CLEAR LIQUIDS FOLLOW UP WITH DR. MOSCOSO IN 2-3 DAYS--CALL ON WEDNESDAY FOR APPOINTMENT. RETURN TO ER IF SYMPTOMS WORSEN Scripts Nitrofurantoin Monohyd/M-Cryst (Macrobid 100 mg Capsule) 100 Mg Capsule 100 MG PO BID, #20 CAP Prov: GIRMA WIGGINS DO 04/08/19 GIRMA WIGGINS DO Apr 07, 2019 23:17
[2019-04-07 23:32] LABS: BILIRUBIN,URINE NEGATIVE (NEGATIVE); CLARITY,URINE CLEAR; COLOR,URINE YELLOW; GLUCOSE, URINE (UA) 4+ (NEGATIVE); KETONES,URINE NEGATIVE (NEGATIVE); LEUKOCYTE ESTERASE ,URINE 2+ (NEGATIVE); NITRITE,URINE NEGATIVE (NEGATIVE); PH,URINE 6 (5-9); PROTEIN,URINE NEGATIVE (NEGATIVE); UROBILINOGEN,URINE NORMAL (NORMAL)
[2019-04-07 23:33] LABS: BACTERIA,URINE FEW /HPF
[2019-04-07 23:33] LABS: BASOPHILS % (AUTO) 0 % (0-10); EOSINOPHILS # (AUTO) 0.2 10^3/uL (0.0-0.3); EOSINOPHILS % (AUTO) 3 % (0-10); HEMATOCRIT 39 % (35-52); HEMOGLOBIN 13.4 G/DL (11.5-16.0); LYMPHOCYTES # (AUTO) 2.5 X 10^3 (1.0-4.0); LYMPHOCYTES % (AUTO) 32 % (12-44); MEAN CORPUSCULAR HEMOGLOBIN 30 PG (25-34); MEAN CORPUSCULAR HGB CONC 35 G/DL (32-36); MEAN CORPUSCULAR VOLUME 86 FL (80-99); MEAN PLATELET VOLUME 11.2 FL (7.4-10.4); MONOCYTES # (AUTO) 0.6 X 10^3 (0.0-1.0); MONOCYTES % (AUTO) 7 % (0-12); NEUTROPHILS # (AUTO) 4.5 X 10^3 (1.8-7.8); NEUTROPHILS % (AUTO) 58 % (42-75); PLATELET COUNT 233 10^3/uL (130-400); RED CELL DISTRIBUTION WIDTH 12.2 % (10.0-14.5); WHITE BLOOD COUNT 7.8 10^3/uL (4.3-11.0)
[2019-04-07] MEDS ORDERED: cefTRIAXone FOR IV USE 1,000 MG in WATER (STERILE) FOR INJECTION 10 ML IV ONE (23:45)
[2019-04-07 23:52] LABS: INR 0.9 (0.8-1.4); PROTHROMBIN TIME PATIENT 11.9 SEC (12.2-14.7)
[2019-04-07 23:53] LABS: ALANINE AMINOTRANSFERASE 21 U/L (0-55); ALKALINE PHOSPHATASE 160 U/L (40-136); AMYLASE 51 U/L (25-125); BILIRUBIN,TOTAL 0.4 MG/DL (0.1-1.0); BUN/CREATININE RATIO 15; CALCIUM 9.5 MG/DL (8.5-10.1); CARBON DIOXIDE 26 MMOL/L (21-32); CHLORIDE 97 MMOL/L (98-107); CREATININE SERUM 1.26 MG/DL (0.60-1.30); GFR ESTIMATED 44; LIPASE 29 U/L (8-78); MAGNESIUM 1.5 MG/DL (1.6-2.4); POTASSIUM 4.3 MMOL/L (3.6-5.0); SODIUM 134 MMOL/L (135-145); TOTAL PROTEIN 6.9 GM/DL (6.4-8.2)
[2019-04-08 00:12] LABS: GLUCOSE 540 MG/DL (70-105)
[2019-04-08] MEDS ORDERED: inSUlin (REGULAR) HUMAN 1 UNIT/0.01 ML (CHARGE PER UNIT) IV ONE (00:15)
[2019-04-08] MEDS ORDERED: NS IV 1000 ML 1,000 ML IV ONE (00:15)
[2019-04-08] MEDS ORDERED: MAGNESIUM OXIDE (MAG-OX)400 MG TAB ONE (00:19)
[2019-04-08] MEDS ORDERED: MAGNESIUM OXIDE (MAG-OX)400 MG TAB PO ONE (00:30)
[2019-04-08] MEDS ORDERED: NITR-65 PO (01:16)
[2019-04-08 01:22] VITALS: BP 110/81
== END 2019-04-08 01:27 | disposition home or self-care (01) ==
LOC: EDUNIT# 22:49 → ER 22:50
DX: E11.9 Type 2 diabetes mellitus without complications (principal); N39.0 Urinary tract infection, site not specified; E83.42 Hypomagnesemia; E66.9 Obesity, unspecified; F32.9 Major depressive disorder, single episode, unspecified; Z85.820 Personal history of malignant melanoma of skin; Z79.52 Long term (current) use of systemic steroids; Z79.84 Long term (current) use of oral hypoglycemic drugs; Z90.710 Acquired absence of both cervix and uterus; Z90.722 Acquired absence of ovaries, bilateral; Z98.51 Tubal ligation status; Z68.41 Body mass index [BMI] 40.0-44.9, adult
CPT/HCPCS: 36415; 80053; 81000; 82150; 82962; 83605; 83690; 83735; 83880; 84443; 84484; 85025; 85610; 85730; 87088; 93005; 93041; 96361; 96374; 96375

== ENCOUNTER → 2019-05-17 | Outpatient (CLI) | payer BC ==
[~2019-05-17] MED LIST changes: +NITR-65 PO
== END ==
LOC: ONC 14:08
PROVIDERS: ATTEND Nurse Practitioner Adult Health
DX: E11.9 Type 2 diabetes mellitus without complications (principal); F32.9 Major depressive disorder, single episode, unspecified; K21.9 Gastro-esophageal reflux disease without esophagitis
CPT/HCPCS: 99213

== ENCOUNTER → 2019-05-19 | Outpatient (CLI) | payer BC ==
--- NOTE | 2019-05-19 08:52 | Diagnostic Imaging Report ---
INDICATION: Routine screening. Comparison is made with prior mammogram from 04/06/2016 and 07/27/2014. 2-D and 3-D bilateral screening mammography was performed with a Computer Aided Detection (CAD) system. 3-D tomosynthesis was also performed and reviewed. FINDINGS: Scattered fibroglandular densities are identified bilaterally. Benign-appearing nodular densities are again noted bilaterally. Benign calcifications are noted bilaterally. No spiculated mass or malignant appearing microcalcifications are seen. Axillae are unremarkable. IMPRESSION: No mammographic features suspicious for malignancy are identified. ACR BI-RADS Category 2: Benign findings. Result letter will be mailed to the patient. Note: At least 10% of breast cancer is not imaged by mammography. Dictated by: Dictated on workstation # [id number]
== END ==
LOC: RAD 07:21
PROVIDERS: ATTEND Nurse Practitioner Family
DX: Z12.31 Encounter for screening mammogram for malignant neoplasm of breast (principal)
CPT/HCPCS: 77067

== ENCOUNTER → 2020-06-13 | Outpatient (CLI) | payer BC ==
[~2020-06-13] MED LIST changes: -OXYC-465 PO; +OXYC-556 PO
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
== END ==
LOC: RAD 14:24
PROVIDERS: ATTEND Nurse Practitioner Family
DX: M25.511 Pain in right shoulder (principal); V89.2XXA Person injured in unspecified motor-vehicle accident, traffic, initial encounter
CPT/HCPCS: 73000; 73030

== ENCOUNTER 2020-11-01 16:15 | Outpatient (RCR) | payer OTHER, BC ==
[~2020-11-01 16:15] MED LIST changes: +BUPR150T24 PO; -BUPR150T7 PO; +METH-732 PO; -METH750T3 PO
== END 2020-11-27 09:33 | disposition home or self-care (01) ==
PROVIDERS: ATTEND Orthopaedic Surgery
DX: M19.011 Primary osteoarthritis, right shoulder (principal)

== ENCOUNTER → 2021-02-19 | Outpatient (CLI) | payer BC ==
--- NOTE | 2021-02-20 09:25 | Diagnostic Imaging Report ---
INDICATION: Routine screening. COMPARISON: 05/19/2019 and 04/06/2016. TECHNIQUE: 2D and 3D bilateral screening mammography was performed with CAD. FINDINGS: Scattered fibroglandular densities are identified bilaterally. A circumscribed nodule in the upper outer right breast at posterior depth is noted and has benign features. No spiculated mass is identified. No malignant-appearing microcalcifications are seen. The axillae are unremarkable. IMPRESSION: No mammographic features suspicious for malignancy are identified. ACR BI-RADS Category 2: Benign findings. Result letter will be mailed to the patient. Note: At least 10% of breast cancer is not imaged by mammography. Dictated by: Dictated on workstation # [id number]
== END ==
LOC: RAD 15:45
PROVIDERS: ATTEND Family Medicine
DX: Z12.31 Encounter for screening mammogram for malignant neoplasm of breast (principal)
CPT/HCPCS: 77063; 77067